=== PATIENT | female | born 1980 | race Caucasian/White ===

== ENCOUNTER 2019-02-24 15:48 | Emergency (ER) | payer OTHER | END 2019-02-24 17:11 | disposition home or self-care (01) | LOC: MADERS 15:48 | DX: J11.1 Influenza due to unidentified influenza virus with other respiratory manifestations (principal); E03.9 Hypothyroidism, unspecified; E66.9 Obesity, unspecified; G43.909 Migraine, unspecified, not intractable, without status migrainosus; M79.7 Fibromyalgia; F41.9 Anxiety disorder, unspecified; F31.9 Bipolar disorder, unspecified; F43.10 Post-traumatic stress disorder, unspecified; Z79.899 Other long term (current) drug therapy | CPT/HCPCS: J7620 ==

== ENCOUNTER 2020-04-11 03:57 | Emergency (ER) | payer OTHER ==
[2020-04-11 04:25] LABS: Bilirubin Negative (Negative); Blood, Urine Negative (Negative); Clarity Clear (Clear); Glucose, Urine (Dipstick) Negative (Negative); Ketone, Urine Negative (Negative); Leukocyte Negative (Negative); Nitrite Negative (Negative); Protein, Urine (Dipstick) Negative (Neg-Trace); Specific Gravity, Urine 1.025 (1.005-1.030); Urobilinogen 0.2 mg/dL (Less than 2)
[2020-04-11 04:36] LABS: Pregnancy Test - Urine (BHCG) Negative (Negative); Pregu Control Background? CLEAR/WHITE (CLR/WHITE); Pregu Control Bar Appear? YES (CONTROL BAR); Specific Gravity 1.025 (1.002-1.036)
[2020-04-11] MEDS ORDERED: Ondansetron PF 4 MG/2 ML Vial ONE (04:43)
[2020-04-11] MEDS ORDERED: Morphine 4 MG/ML VIAL ONE (04:43)
[2020-04-11] MEDS ORDERED: Sodium Chloride 0.9% 1,000 ML ONE (04:43)
[2020-04-11 04:47] LABS: #Basophils 0.2 thou/uL (0.0-0.2); #Eosinphils 0.2 thou/uL (0.0-0.7); #Lymphocytes 2.2 thou/uL (1.20-3.40); #Monocytes 0.7 thou/uL (0.11-0.59); #Neutrophils 7.3 thou/uL (1.40-6.50); %Basophils 1.6 % (0.0-1.0); %Eosinophils 1.8 % (0.0-10.0); %Lymphocytes 20.7 % (21.0-51.0); %Monocytes 6.9 % (0.0-10.0); Hemoglobin 14.8 g/dL (12.0-16.0); Mean Corpuscular HGB CONC 34.2 g/dL (32.0-36.0); Mean Corpuscular Volume 87.9 fL (78.0-98.0); Mean Platelet Volume 8.3 fL (7.4-10.4); Platelet Count 282 thou/uL (130-400); RBC Distribution Width 11.1 % (11.5-14.5); Red Blood Cell (RBC) Count 4.91 mill/uL (4.20-5.40); White Blood Cell (WBC) Count 10.6 thou/uL (4.8-10.8)
[2020-04-11 05:02] LABS: ALT (SGPT) 20 U/L (8-55); AST (SGOT) 22 U/L (5-34); Albumin 4.7 g/dL (3.5-5.0); Alkaline Phosphatase 73 U/L (40-110); Anion Gap 16 mmol/L (10-20); BUN (Urea Nitrogen) 18 mg/dL (7.0-18.7); Bilirubin, Total 0.4 mg/dL (0.2-1.2); Calc. Creatinine Clearance 0 mL/min (70-130); Calcium 9.5 mg/dL (7.8-10.44); Carbon Dioxide 22 mmol/L (22-29); Chloride 105 mmol/L (98-107); Globulin 3.4 g/dL (2.4-3.5); Glucose 91 mg/dL (70-105); Lipase 52 U/L (8-78); Potassium 4.8 mmol/L (3.5-5.1); Protein, Total 8.1 g/dL (6.0-8.3); Sodium 138 mmol/L (136-145)
--- NOTE | 2020-04-11 08:28 | CT ---
PRELIMINARY REPORT/[facility]/EMERGENCY AFTER HOURS PROCEDURE: ABDOMINAL AND PELVIC CT WITHOUT IV CONTRAST TECHNIQUE: Non-IV contrast-enhanced axial CT images were obtained through the abdomen and pelvis. Multiplanar reformats were provided. History: Low back pain Comparison: None FINDINGS: No acute basilar lung abnormality noted. Unenhanced images of the liver and spleen are unremarkable. The gallbladder and biliary system are unremarkable. The adrenal glands appear normal. 2 mm nonobstructing right lower pole renal calculus noted on coronal reformatted series 301, image 76 . No additional calculi are seen. Both kidneys are otherwise unremarkable. There is no hydronephros is or perinephric stranding. The bladder is unremarkable. No acute bowel abnormality noted. Bowel loops are unremarkable The appendix is not seen. No secondary inflammatory changes noted in the right lower quadrant. The uterus and both adnexal regions are unremarkable on the basis of CT imaging. There is no free fluid or acute inflammatory stranding. The abdominal aorta is non-aneurysmal. Visualized osseous structures are unremarkable for patient's age. IMPRESSION: No acute inflammatory process in the abdomen or pelvis. 2 mm nonobstructing right renal calculus. No obstructive uropathy. ELECTRONICALLY SIGNED BY: Wilbert Dean MD Apr 11, 2020 5:30:43 AM [employer] This report is intended for review by the ordering physician only, in accordance of law. If you recei ve this report in error, please call [facility] at [phone]. FINAL REPORT EMERGENCY AFTER HOURS CT OF THE ABDOMEN AND PELVIS WITHOUT CONTRAST: FINDINGS/IMPRESSION: I agree with the findings and impression given in the preliminary report per [facility] physici an. 1. No evidence of acute intra-abdominal/pelvic abnormality. 2. Nonobstructing tiny right renal calcification. POS: EAA
== END 2020-04-11 06:14 | disposition home or self-care (01) ==
LOC: MADERS 03:57
DX: R10.9 Unspecified abdominal pain (principal); M54.5 Low back pain; E03.9 Hypothyroidism, unspecified; E66.9 Obesity, unspecified; M79.7 Fibromyalgia; Z79.899 Other long term (current) drug therapy
CPT/HCPCS: 74176; 80053; 81003; 81025; 83605; 83690; 85025; 87480; 87491; 87510; 87591; 87660; 96374; 96375; J2270; J2405; J7050

== ENCOUNTER 2020-05-03 09:23 | Emergency (ER) | payer OTHER ==
[2020-05-03] MEDS ORDERED: Ketorolac Tromethamine 30 MG/ML VIAL ONE (09:38)
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
== END 2020-05-03 10:40 | disposition home or self-care (01) ==
LOC: MADERS 09:23
DX: S29.012A Strain of muscle and tendon of back wall of thorax, initial encounter (principal); S80.02XA Contusion of left knee, initial encounter; E03.9 Hypothyroidism, unspecified; G43.909 Migraine, unspecified, not intractable, without status migrainosus; E66.9 Obesity, unspecified; Z79.899 Other long term (current) drug therapy; Z87.442 Personal history of urinary calculi; Z79.1 Long term (current) use of non-steroidal anti-inflammatories (NSAID); V89.2XXA Person injured in unspecified motor-vehicle accident, traffic, initial encounter
CPT/HCPCS: 72072; 96372; J1885

== ENCOUNTER 2020-05-11 12:05 | Emergency (ER) | payer OTHER ==
[2020-05-11] MEDS ORDERED: Diazepam 10 MG/2 ML SYRINGE ONE ×2 (12:38→14:02)
[2020-05-11] MEDS ORDERED: Ibuprofen 800 MG TAB ONE (12:38)
== END 2020-05-11 15:10 | disposition home or self-care (01) ==
LOC: MADERS 12:05
DX: F41.9 Anxiety disorder, unspecified (principal); F30.9 Manic episode, unspecified; E03.9 Hypothyroidism, unspecified; E66.9 Obesity, unspecified; Z79.899 Other long term (current) drug therapy
CPT/HCPCS: 96372; 99284; J3360

== ENCOUNTER 2020-11-08 14:08 | Outpatient (CLI) | payer OTHER | END 2020-11-08 14:09 | disposition home or self-care (01) | LOC: MADCT 14:08 | PROVIDERS: ATTEND Family Medicine | DX: N20.0 Calculus of kidney (principal) | CPT/HCPCS: 74176 ==

== ENCOUNTER 2020-12-24 11:59 | Outpatient (CLI) | payer MEDICARE, OTHER ==
[2020-12-24 13:04] LABS: ALT (SGPT) 65 U/L (8-55); AST (SGOT) 27 U/L (5-34); Albumin 4.2 g/dL (3.5-5.0); Alkaline Phosphatase 78 U/L (40-110); Anion Gap 14 mmol/L (10-20); BUN (Urea Nitrogen) 21 mg/dL (7.0-18.7); Bilirubin, Total 0.4 mg/dL (0.2-1.2); Calc. Creatinine Clearance 0 mL/min (70-130); Calcium 9.5 mg/dL (7.8-10.44); Carbon Dioxide 26 mmol/L (22-29); Cardiac Risk 3.7 (Less than 4.5); Chloride 104 mmol/L (98-107); Cholesterol 176 mg/dl (< 200 Desired); Glucose 87 mg/dL (70-105); HDL Cholesterol 48 mg/dL (>60 Neg Risk); LDL Cholesterol, Calculated 106 mg/dL; Potassium 4.7 mmol/L (3.5-5.1); Protein, Total 7.2 g/dL (6.0-8.3); Sodium 139 mmol/L (136-145); Triglycerides 112 mg/dL (Less than 150)
[2020-12-24 13:12] LABS: #Basophils 0.1 thou/uL (0.0-0.2); #Eosinphils 0.3 thou/uL (0.0-0.7); #Lymphocytes 2.1 thou/uL (1.20-3.40); #Monocytes 0.7 thou/uL (0.11-0.59); #Neutrophils 5.1 thou/uL (1.40-6.50); %Basophils 1.7 % (0.0-1.0); %Eosinophils 4.1 % (0.0-10.0); %Lymphocytes 25.1 % (21.0-51.0); %Neutrophils 61.1 % (42.0-75.0); Hemoglobin 14.4 g/dL (12.0-16.0); Mean Corpuscular HGB CONC 32.8 g/dL (32.0-36.0); Mean Corpuscular Volume 91.4 fL (78.0-98.0); Mean Platelet Volume 6.9 fL (7.4-10.4); Platelet Count 213 thou/uL (130-400); RBC Distribution Width 11.5 % (11.5-14.5); Red Blood Cell (RBC) Count 4.78 mill/uL (4.20-5.40); White Blood Cell (WBC) Count 8.4 thou/uL (4.8-10.8)
[2020-12-24 17:32] LABS: Hemoglobin A1c 4.7 % (4.0-6.0)
== END 2020-12-24 12:00 | disposition home or self-care (01) ==
LOC: MADLAB 11:59
PROVIDERS: ATTEND Family Medicine
DX: Z00.01 Encounter for general adult medical examination with abnormal findings (principal); R06.02 Shortness of breath
CPT/HCPCS: 36415; 71046; 80053; 80061; 83036; 83880; 84443; 85025; 93005; 93010

== ENCOUNTER 2021-06-16 10:23 | Outpatient (CLI) | payer OTHER ==
[2021-06-16 11:30] LABS: Anion Gap 11 mmol/L (10-20); BUN (Urea Nitrogen) 12 mg/dL (7.0-18.7); Calc. Creatinine Clearance 0 mL/min (70-130); Calcium 9.5 mg/dL (7.8-10.44); Carbon Dioxide 29 mmol/L (22-29); Chloride 104 mmol/L (98-107); Glucose 89 mg/dL (70-105); Potassium 4.1 mmol/L (3.5-5.1); Sodium 140 mmol/L (136-145)
== END 2021-06-16 10:24 | disposition home or self-care (01) ==
LOC: MADLAB 10:23
PROVIDERS: ATTEND Urology
DX: N20.0 Calculus of kidney (principal); R39.14 Feeling of incomplete bladder emptying; Z87.440 Personal history of urinary (tract) infections
CPT/HCPCS: 36415; 74018; 76770; 80048